=== PATIENT | male | born 1985 | race American Indian/Alaskan Native ===

== ENCOUNTER 2019-02-18 10:42 | Emergency (ER) | payer OTHER ==
[2019-02-18 10:54] VITALS: BP 129/89
--- NOTE | 2019-02-18 11:13 | Emergency Department Report ---
Abscess Boil HPI - HPI Chief Complaint: Abdominal Pain Stated Complaint: STOMACH BLEEDING INSIDE/PAIN Time Seen by Provider: 02/18/19 11:11 Duration: 1 Week Location: Other Severity: Mild History: Yes Pain, Yes Previous History, No Fever, No Purulent Drainage, No Numbness, No Foreign Body, No Insect Bite HPI: Patient is a pleasant 33-year-old -[place] male who comes to the ER today with his bleeding hemorrhoids. It is bright red blood on his stool. He denies straining. He states he lifts a lot of heavy stuff at work. denies anal sex. He has a prior history of hemorrhoids. He did not take any medicines at home to resolve his symptoms. Patient is not tachycardic nor hypotensive. Past medical history hemorrhoids. Past surgical history none. Home medications none. Primary care none Home Medications: Previous Rx's Medication Instructions Recorded Last Taken Type PE/Shk Lvr/Mo/Pet,Wh [Preparation 28 gm [place] BID #1 tube 02/18/19 Unknown Rx H] Phenylephrine HCl/[place] Butter 1 each RC DAILY #5 supp.rect 02/18/19 Unknown Rx [Preparation H Suppository] Allergies/Adverse Reactions: Allergies Allergy/AdvReac Type Severity Reaction Status Date / Time No Known Allergies Allergy Unverified 02/18/19 10:45 ED Review of Systems ROS: Stated complaint: STOMACH BLEEDING INSIDE/PAIN Other details as noted in HPI Comment: All other systems reviewed and negative Constitutional: denies: see HPI Eyes: denies: eye pain ENT: denies: as per HPI, throat pain Respiratory: denies: cough Cardiovascular: denies: palpitations Endocrine: denies: intolerance to cold Gastrointestinal: as per HPI, other (hemorrhoids bleeding). denies: abdominal pain, nausea Genitourinary: denies: dysuria Musculoskeletal: denies: back pain Skin: denies: lesions Neurological: denies: headache Psychiatric: denies: anxiety Hematological/Lymphatic: denies: easy bleeding ED Past Medical Hx - Past Medical History Previous Medical History?: Yes Additional medical history: hemorrhoids - Surgical History Past Surgical History?: No - Family History Family history: no significant - Social History Smoking Status: Current Every Day Smoker Substance Use Type: None - Medications Home Medications: Home Medications Medication Instructions Recorded Confirmed Last Taken Type PE/Shk Lvr/Mo/Pet,Wh [Preparation 28 gm [place] BID #1 tube 02/18/19 Unknown Rx H] Phenylephrine HCl/[place] Butter 1 each RC DAILY #5 supp.rect 02/18/19 Unknown Rx [Preparation H Suppository] ED Abscess Boil Physical Exam - Exam General: Vital signs noted. No distress. Alert and acting appropriately. Exam: Yes Tenderness, Yes Normal Neurologic Exam, Yes Normal Circulation, No Heart Murmur ED Course Vital Signs 02/18/19 10:51 Temperature 98.2 F Pulse Rate 86 Respiratory 16 Rate Blood Pressure 129/89 [Left] O2 Sat by Pulse 100 Oximetry Critical care attestation.: If time is entered above; I have spent that time in minutes in the direct care of this critically ill patient, excluding procedure time. ED Medical Decision Making - Medical Decision Making prep h ME sup and cream pt educated on hemorrhoids and care of them VSS no tachycardia no hypotension no melena no abd pain ambulatory non toxic Vital Signs 02/18/19 10:51 Temperature 98.2 F Pulse Rate 86 Respiratory 16 Rate Blood Pressure 129/89 [Left] O2 Sat by Pulse 100 Oximetry ED Disposition Clinical Impression: External hemorrhoid Disposition: DC-01 TO HOME OR SELFCARE Is pt being admited?: No Does the pt Need Aspirin: No Condition: Stable Instructions: Hemorrhoids (ED) Additional Instructions: med as ordered today warm baths will help pain follow up with pcp referral below do not strain to have a stool eat high fiber diet good body mechanics when lifting Prescriptions: PE/Shk Lvr/Mo/Pet,Wh [Preparation H] 28 gm [place] BID #1 tube Phenylephrine HCl/[place] Butter [Preparation H Suppository] 1 each RC DAILY #5 supp.rect Referrals: IGNACIA RICE MD [Primary Care Provider] - 3-5 Days Time of Disposition: 11:45
[2019-02-18] MEDS ORDERED: HEMORRHOIDAL 0.25/3/85.5% PR ONE (12:00)
[2019-02-18] MEDS ORDERED: PREPARATION H PR ONE (12:12)
== END 2019-02-18 12:08 | disposition home or self-care (01) ==
LOC: ED 10:42
DX: K64.4 Residual hemorrhoidal skin tags (principal); F17.200 Nicotine dependence, unspecified, uncomplicated
CPT/HCPCS: 99282

== ENCOUNTER 2019-07-09 09:59 | Emergency (ER) | payer OTHER ==
[2019-07-09 10:12] VITALS: BP 118/80
[2019-07-09 10:34] LABS: Basophils # (Auto) 0.1 K/mm3 (0.0-0.1); Eosinophils # (Auto) 0.2 K/mm3 (0.0-0.4); Eosinophils % (Auto) 3.2 % (0.0-4.3); Hematocrit 44.3 % (35.5-45.6); Hemoglobin 14.6 gm/dl (11.8-15.2); Lymphocytes # (Auto) 1.7 K/mm3 (1.2-5.4); Lymphocytes % (Auto) 24.5 % (13.4-35.0); Mean Corpuscular HGB Conc 33 % (32-34); Mean Corpuscular Volume 85 fl (84-94); Monocytes # (Auto) 0.6 K/mm3 (0.0-0.8); Monocytes % (Auto) 9.3 % (0.0-7.3); Platelet Count 179 K/mm3 (140-440); Red Blood Count 5.19 M/mm3 (3.65-5.03); Red Cell Distribution Width 14.1 % (13.2-15.2)
[2019-07-09 10:55] LABS: Alanine Aminotransferase 20 units/L (7-56); Albumin 4.5 g/dL (3.9-5); BUN/Creatinine Ratio 18; Blood Urea Nitrogen 14 mg/dL (9-20); Calcium 9.3 mg/dL (8.4-10.2); Hemolysis Index 29
[2019-07-09] MEDS ORDERED: ZOFRAN IV STA (11:32)
[2019-07-09] MEDS ORDERED: NACL 0.9% 1000 ML 1,000 ML IV ONE (11:32)
[2019-07-09] MEDS ORDERED: MORPHINE IV STA (11:32)
--- NOTE | 2019-07-09 11:39 | Emergency Department Report ---
ED Abdominal Pain HPI - General Chief Complaint: Back Pain/Injury Stated Complaint: POSS KIDNEY STONES/LOWER BACK PAIN Time Seen by Provider: 07/09/19 11:31 Source: patient Mode of arrival: Ambulatory Limitations: No Limitations - History of Present Illness Initial Comments: 34-year-old Lebanese male with past Present history of chief kidney stones or tumors department complaining of a kidney stone follow-up in his right flank. Reports having sharp stabbing pain with a sudden onset core associated with some dysuria. Also states he's passed a few kidney stones this morning but the pain continues to to linger. He is unsure of the stone type but last had a stone outbreak a couple years ago. Reports no no fever, but does have some nausea and fatigue. MD Complaint: abdominal pain, flank pain -: Sudden Location: R flank Radiation: R flank Migration to: no migration Quality: stabbing, sharp Consistency: intermittent Improves With: nothing Worsens With: nothing Associated Symptoms: nausea. denies: vomiting, diarrhea, constipation, hematemesis, hematochezia, hematuria, anorexia - Related Data Previous Rx's Medication Instructions Recorded Last Taken Type PE/Mo/Pet,Wh [Preparation H] 28 gm [place] BID #1 tube 02/18/19 Unknown Rx Phenylephrine HCl/[place] Butter 1 each RC DAILY #5 supp.rect 02/18/19 Unknown Rx [Preparation H Suppository] HYDROcodone/APAP 10-325 [[place] 1 each PO Q6HR PRN #10 tablet 07/09/19 Unknown Rx 10/325] Sulfamethoxazole/Trimethoprim 1 each PO BID #20 tablet 07/09/19 Unknown Rx [Bactrim Ds] Tamsulosin [Flomax] 0.4 mg PO QDAY #7 cap 07/09/19 Unknown Rx Allergies Allergy/AdvReac Type Severity Reaction Status Date / Time No Known Allergies Allergy Verified 07/09/19 10:01 ED Review of Systems ROS: Stated complaint: POSS KIDNEY STONES/LOWER BACK PAIN Other details as noted in HPI Comment: All other systems reviewed and negative ED Past Medical Hx - Past Medical History Additional medical history: hemorrhoids - Social History Smoking Status: Never Smoker Substance Use Type: Marijuana - Medications Home Medications: Home Medications Medication Instructions Recorded Confirmed Last Taken Type PE/Mo/Pet,Wh [Preparation H] 28 gm [place] BID #1 tube 02/18/19 Unknown Rx Phenylephrine HCl/[place] Butter 1 each RC DAILY #5 supp.rect 02/18/19 Unknown Rx [Preparation H Suppository] HYDROcodone/APAP 10-325 [[place] 1 each PO Q6HR PRN #10 tablet 07/09/19 Unknown Rx 10/325] Sulfamethoxazole/Trimethoprim 1 each PO BID #20 tablet 07/09/19 Unknown Rx [Bactrim Ds] Tamsulosin [Flomax] 0.4 mg PO QDAY #7 cap 07/09/19 Unknown Rx ED Physical Exam - General Limitations: No Limitations General appearance: alert, in no apparent distress - Head Head exam: Present: atraumatic, normocephalic - Eye Eye exam: Present: normal appearance - ENT ENT exam: Present: mucous membranes moist - Neck Neck exam: Present: normal inspection - Respiratory Respiratory exam: Present: normal lung sounds bilaterally. Absent: respiratory distress - Cardiovascular Cardiovascular Exam: Present: regular rate, normal rhythm. Absent: systolic murmur, diastolic murmur, rubs, gallop - GI/Abdominal GI/Abdominal exam: Present: soft, normal bowel sounds - Rectal Rectal exam: Present: deferred - Extremities Exam Extremities exam: Present: normal inspection - Back Exam Back exam: Present: normal inspection, CVA tenderness (R) - Neurological Exam Neurological exam: Present: alert, oriented X3 - Psychiatric Psychiatric exam: Present: normal affect, normal mood - Skin Skin exam: Present: warm, dry, intact, normal color. Absent: rash ED Course Vital Signs 07/09/19 07/09/19 10:10 11:57 Temperature 98.4 F Pulse Rate 63 Respiratory 16 18 Rate Blood Pressure 118/80 O2 Sat by Pulse 100 Oximetry ED Medical Decision Making - Lab Data Result diagrams: 07/09/19 10:19 07/09/19 10:19 - Medical Decision Making 34-year-old male with known history of recurrent kidney stones therapy today. CT scan shows stones on the right, most on the left than the collecting system. Advised him of the report and follow-up with urology for reevaluation and definitive management. Given his parents kidney stone situation. Critical care attestation.: If time is entered above; I have spent that time in minutes in the direct care of this critically ill patient, excluding procedure time. ED Disposition Clinical Impression: Kidney stones Disposition: DC-01 TO HOME OR SELFCARE Is pt being admited?: No Does the pt Need Aspirin: No Condition: Stable Instructions: Kidney Stones (ED), Ureteroscopy (GEN), How to Strain Your Urine (ED) Prescriptions: Sulfamethoxazole/Trimethoprim [Bactrim Ds] 1 each PO BID #20 tablet Tamsulosin [Flomax] 0.4 mg PO QDAY #7 cap HYDROcodone/APAP 10-325 [[place] 10/325] 1 each PO Q6HR PRN #10 tablet PRN Reason: Pain Referrals: [facility] [Provider Group] - 3-5 Days [facility] AMARIS WYATT MD [Primary Care Provider] - 3-5 Days Forms: Work/School Release Form(ED)
[2019-07-09 12:15] LABS: Bilirubin,Urine NEG (Negative); Blood,Urine MOD (Negative); Color,Urine Yellow (Yellow); Mucus,Urine 3+ /HPF
[2019-07-09 12:16] LABS: RBC,Urine > 182.0 /HPF (0.0-6.0)
[2019-07-09] MEDS ORDERED: TORADOL IV STA (12:55)
[2019-07-09] MEDS ORDERED: SUBLIMAZE IV STA (12:56)
--- NOTE | 2019-07-09 13:18 | Cat Scan Report ---
CT ABDOMEN AND PELVIS WITHOUT CONTRAST INDICATION / CLINICAL INFORMATION: flank pain right. kidney stone hx. TECHNIQUE: Axial CT images were obtained through the abdomen and pelvis without IV contrast. All CT scans at [facility] location are performed using CT dose reduction for ALARA by means of automated exposure control. COMPARISON: None available. FINDINGS: LOWER CHEST: No significant abnormality. LIVER: No significant abnormality. GALLBLADDER: No significant abnormality. BILE DUCTS: No significant abnormality. PANCREAS: No significant abnormality. SPLEEN: No significant abnormality. ADRENALS: No significant abnormality. RIGHT KIDNEY and URETER: Slight right hydronephrosis. Multiple nonobstructive stones throughout the r ight collecting system. LEFT KIDNEY and URETER: Extensive nonobstructive stones throughout the left collecting system. STOMACH and SMALL BOWEL: No significant abnormality. COLON: No significant abnormality. APPENDIX: No significant abnormality. PERITONEUM: No free fluid. No free air. No fluid collection. LYMPH NODES: No significant adenopathy. AORTA and ARTERIES: No significant abnormality. IVC and VEINS: No significant abnormality. URINARY BLADDER: No significant abnormality. REPRODUCTIVE ORGANS: No significant abnormality. ADDITIONAL FINDINGS: None. SKELETAL SYSTEM: No significant abnormality. IMPRESSION: Mildly obstructive 3 mm stone within the mid right ureter causing minimal to mild right hydronephrosi s. Extensive nonobstructive stones throughout the left collecting system. Signer Name: Amanuel Meza MD Signed: 07/09/2019 1:13 PM Workstation Name: [id number]
[2019-07-09] MEDS ORDERED: PERCOCET 5/325 PO STA (14:25)
== END 2019-07-09 14:33 | disposition home or self-care (01) ==
LOC: ED 09:59
DX: N20.0 Calculus of kidney (principal); F12.10 Cannabis abuse, uncomplicated; Z79.899 Other long term (current) drug therapy
CPT/HCPCS: 36415; 74176; 80053; 81001; 85025; 87086; 96374; 96375; 99284; J1885; J2270; J2405; J3010; J7030

== ENCOUNTER 2019-07-12 07:19 | Emergency (ER) | payer OTHER ==
[2019-07-12 07:29] VITALS: BP 134/92
[2019-07-12] MEDS ORDERED: NACL 0.9% 1000 ML 1,000 ML IV ONE (08:24)
[2019-07-12] MEDS ORDERED: MORPHINE IV ONE (08:24)
[2019-07-12] MEDS ORDERED: ZOFRAN IV ONE (08:24)
[2019-07-12] MEDS ORDERED: TORADOL IV ONE (08:24)
[2019-07-12 08:42] LABS: Basophils # (Auto) 0.1 K/mm3 (0.0-0.1); Basophils % (Auto) 1.1 % (0.0-1.8); Eosinophils # (Auto) 0.4 K/mm3 (0.0-0.4); Eosinophils % (Auto) 5.3 % (0.0-4.3); Hematocrit 44.5 % (35.5-45.6); Hemoglobin 14.8 gm/dl (11.8-15.2); Lymphocytes # (Auto) 1.5 K/mm3 (1.2-5.4); Lymphocytes % (Auto) 20.8 % (13.4-35.0); Mean Corpuscular HGB Conc 33 % (32-34); Mean Corpuscular Volume 86 fl (84-94); Monocytes # (Auto) 0.7 K/mm3 (0.0-0.8); Monocytes % (Auto) 10.2 % (0.0-7.3); Platelet Count 183 K/mm3 (140-440); Red Blood Count 5.19 M/mm3 (3.65-5.03); Red Cell Distribution Width 14.3 % (13.2-15.2)
[2019-07-12 08:57] LABS: BUN/Creatinine Ratio 15; Blood Urea Nitrogen 12 mg/dL (9-20); Calcium 9.3 mg/dL (8.4-10.2); Hemolysis Index 21
[2019-07-12 09:09] LABS: Bacteria,Urine 1+ /HPF (Negative); Bilirubin,Urine NEG (Negative); Blood,Urine LG (Negative); Calcium Oxalate Crystals,Urine 1+; Color,Urine Yellow (Yellow); Mucus,Urine 3+ /HPF; Urobilinogen,Urine < 2.0 mg/dL (<2.0)
[2019-07-12 09:10] LABS: RBC,Urine > 182.0 /HPF (0.0-6.0)
--- NOTE | 2019-07-12 09:13 | Cat Scan Report ---
CT ABDOMEN AND PELVIS WITHOUT CONTRAST INDICATION / CLINICAL INFORMATION: right flank pain. TECHNIQUE: Axial CT images were obtained through the abdomen and pelvis without IV contrast. All CT scans at [facility] location are performed using CT dose reduction for ALARA by means of automated exposure control. COMPARISON: Exam is compared to 07/09/2019 FINDINGS: LOWER CHEST: No significant abnormality. LIVER: No significant abnormality. GALLBLADDER: No significant abnormality. BILE DUCTS: No significant abnormality. PANCREAS: No significant abnormality. SPLEEN: No significant abnormality. ADRENALS: No significant abnormality. RIGHT KIDNEY and URETER: The previously noted calculus in the mid ureter has migrated distally and is in the distal ureter 2 cm proximal to the urinary bladder. Multiple renal calculi are present in the collecting system LEFT KIDNEY and URETER: Multiple left renal calculi STOMACH and SMALL BOWEL: No significant abnormality. COLON: No significant abnormality. APPENDIX: No significant abnormality. PERITONEUM: No free fluid. No free air. No fluid collection. LYMPH NODES: No significant adenopathy. AORTA and ARTERIES: No significant abnormality. IVC and VEINS: No significant abnormality. URINARY BLADDER: No significant abnormality. REPRODUCTIVE ORGANS: No significant abnormality. ADDITIONAL FINDINGS: None. SKELETAL SYSTEM: No significant abnormality. IMPRESSION: 1. 3 mm calculus distal right ureter with minimum hydronephrosis 2. Bilateral nephrolithiasis Signer Name: Zain Conti MD Signed: 07/12/2019 9:08 AM Workstation Name: [id number]
--- NOTE | 2019-07-12 09:48 | Emergency Department Report ---
ED General Adult HPI - General Chief complaint: Abdominal Pain Stated complaint: KIDNEY STONE Time Seen by Provider: 07/12/19 08:17 Source: patient Mode of arrival: Ambulatory Limitations: No Limitations - History of Present Illness Initial comments: Patient is a 34-year-old male who is presenting with right flank pain. Patient states pain started approximate 4 AM last night. Patient has a history of kidney stones. Patient states that the pain is in the right lower back wrapping around to the flank. He's noted some red tinge to his urine. Patient has some nausea but no vomiting. He also reports 1 episode of loose stools. Patient states pain is 9 out of 10 in severity and sharp. Patient denies fevers chills cough cold or congestion. Severity scale (0 -10): 9 - Related Data Previous Rx's Medication Instructions Recorded Last Taken Type PE/Mo/Pet,Wh [Preparation H] 28 gm [place] BID #1 tube 02/18/19 Unknown Rx Phenylephrine HCl/[place] Butter 1 each RC DAILY #5 supp.rect 02/18/19 Unknown Rx [Preparation H Suppository] HYDROcodone/APAP 10-325 [[place] 1 each PO Q6HR PRN #10 tablet 07/09/19 Unknown Rx 10/325] Sulfamethoxazole/Trimethoprim 1 each PO BID #20 tablet 07/09/19 Unknown Rx [Bactrim Ds] Tamsulosin [Flomax] 0.4 mg PO QDAY #7 cap 07/09/19 Unknown Rx Ciprofloxacin HCl [Ciprofloxacin 500 mg PO Q12HR #14 tab 07/12/19 Unknown Rx TAB] HYDROcodone/APAP 5-325 [[place] 1 each PO Q6HR PRN #14 tablet 07/12/19 Unknown Rx 5/325] Ibuprofen [Motrin 600 MG tab] 600 mg PO Q8H PRN #20 tablet 07/12/19 Unknown Rx Ondansetron [Zofran Odt] 4 mg PO Q8HR #10 tab.rapdis 07/12/19 Unknown Rx Tamsulosin [Flomax] 0.4 mg PO QDAY #7 cap 07/12/19 Unknown Rx Allergies Allergy/AdvReac Type Severity Reaction Status Date / Time No Known Allergies Allergy Verified 07/09/19 10:01 ED Review of Systems ROS: Stated complaint: KIDNEY STONE Other details as noted in HPI Comment: All other systems reviewed and negative ED Past Medical Hx - Past Medical History Previous Medical History?: Yes Additional medical history: hemorrhoids. kidney stones - Surgical History Past Surgical History?: No - Social History Smoking Status: Current Every Day Smoker Substance Use Type: Marijuana - Medications Home Medications: Home Medications Medication Instructions Recorded Confirmed Last Taken Type PE/Mo/Pet,Wh [Preparation H] 28 gm [place] BID #1 tube 02/18/19 Unknown Rx Phenylephrine HCl/[place] Butter 1 each RC DAILY #5 supp.rect 02/18/19 Unknown Rx [Preparation H Suppository] HYDROcodone/APAP 10-325 [[place] 1 each PO Q6HR PRN #10 tablet 07/09/19 Unknown Rx 10/325] Sulfamethoxazole/Trimethoprim 1 each PO BID #20 tablet 07/09/19 Unknown Rx [Bactrim Ds] Tamsulosin [Flomax] 0.4 mg PO QDAY #7 cap 07/09/19 Unknown Rx Ciprofloxacin HCl [Ciprofloxacin 500 mg PO Q12HR #14 tab 07/12/19 Unknown Rx TAB] HYDROcodone/APAP 5-325 [[place] 1 each PO Q6HR PRN #14 tablet 07/12/19 Unknown Rx 5/325] Ibuprofen [Motrin 600 MG tab] 600 mg PO Q8H PRN #20 tablet 07/12/19 Unknown Rx Ondansetron [Zofran Odt] 4 mg PO Q8HR #10 tab.rapdis 07/12/19 Unknown Rx Tamsulosin [Flomax] 0.4 mg PO QDAY #7 cap 07/12/19 Unknown Rx ED Physical Exam - General Limitations: No Limitations General appearance: alert, in distress - Head Head exam: Present: atraumatic, normocephalic - Eye Eye exam: Present: normal appearance - ENT ENT exam: Present: mucous membranes moist - Neck Neck exam: Present: normal inspection - Respiratory Respiratory exam: Present: normal lung sounds bilaterally. Absent: respiratory distress, wheezes, rales, rhonchi - Cardiovascular Cardiovascular Exam: Present: regular rate, normal rhythm, normal heart sounds. Absent: systolic murmur, diastolic murmur, rubs, gallop - GI/Abdominal GI/Abdominal exam: Present: soft, tenderness (right flank), normal bowel sounds. Absent: distended, guarding, rebound, rigid - Rectal Rectal exam: Present: deferred - Extremities Exam Extremities exam: Present: normal inspection - Back Exam Back exam: Present: normal inspection, CVA tenderness (R) - Neurological Exam Neurological exam: Present: alert, oriented X3 - Psychiatric Psychiatric exam: Present: normal affect, normal mood - Skin Skin exam: Present: warm, dry, intact, normal color. Absent: rash ED Course Vital Signs 07/12/19 07:27 Temperature 97.8 F Pulse Rate 60 Respiratory 16 Rate Blood Pressure 134/92 O2 Sat by Pulse 100 Oximetry ED Medical Decision Making - Lab Data Result diagrams: 07/12/19 08:35 07/12/19 08:35 Lab Results 07/12/19 07/12/19 07/12/19 Range/Units 07:52 08:35 08:35 WBC 7.0 (4.5-11.0) K/mm3 RBC 5.19 H (3.65-5.03) M/mm3 Hgb 14.8 (11.8-15.2) gm/dl Hct 44.5 (35.5-45.6) % MCV 86 (84-94) fl MCH 29 (28-32) pg MCHC 33 (32-34) % RDW 14.3 (13.2-15.2) % Plt Count 183 (140-440) K/mm3 Lymph % (Auto) 20.8 (13.4-35.0) % [place] % (Auto) 10.2 H (0.0-7.3) % Eos % (Auto) 5.3 H (0.0-4.3) % Baso % (Auto) 1.1 (0.0-1.8) % Lymph # 1.5 (1.2-5.4) K/mm3 [place] # 0.7 (0.0-0.8) K/mm3 Eos # 0.4 (0.0-0.4) K/mm3 Baso # 0.1 (0.0-0.1) K/mm3 Seg Neutrophils % 62.6 (40.0-70.0) % Seg Neutrophils # 4.4 (1.8-7.7) K/mm3 Sodium 143 (137-145) mmol/L Potassium 4.3 (3.6-5.0) mmol/L Chloride 107.9 H (98-107) mmol/L Carbon Dioxide 26 (22-30) mmol/L Anion Gap 13 mmol/L BUN 12 (9-20) mg/dL Creatinine 0.8 (0.8-1.5) mg/dL Estimated GFR > 60 ml/min BUN/Creatinine Ratio 15 % Glucose 94 (75-100) mg/dL Calcium 9.3 (8.4-10.2) mg/dL Urine Color Yellow (Yellow) Urine Turbidity Slightly-cloudy (Clear) Urine pH 6.0 (5.0-7.0) Ur Specific [place] 1.024 (1.003-1.030) Urine Protein 30 mg/dl (Negative) mg/dL Urine Glucose (UA) Neg (Negative) mg/dL Urine Ketones Neg (Negative) mg/dL Urine Blood Lg (Negative) Urine Nitrite Neg (Negative) Urine Bilirubin Neg (Negative) Urine Urobilinogen < 2.0 (<2.0) mg/dL Ur Leukocyte Esterase Mod (Negative) Urine WBC (Auto) 36.0 H (0.0-6.0) /HPF Urine RBC (Auto) > 182.0 (0.0-6.0) /HPF Urine Bacteria (Auto) 1+ (Negative) /HPF Calcium Oxalate Crystal 1+ Urine Mucus 3+ /HPF - EKG Data 07/12/19 09:46 [facility] [address] [place] [address] Cat Scan Report Signed Patient: JEISON JOLLY II MR# : [id number] : 1985 Acct:[id number] Age/Sex: 34 / M ADM Date: 07/12/19 Loc: ED Attending Dr: Ordering Physician: RAYSA TALBOT MD Date of Service: 07/12/19 Procedure(s): CT abdomen pelvis wo con Accession Number(s): [id number] cc: RAYSA TALBOT MD CT ABDOMEN AND PELVIS WITHOUT CONTRAST INDICATION / CLINICAL INFORMATION: right flank pain. TECHNIQUE: Axial CT images were obtained through the abdomen and pelvis without IV contrast. All CT scans at this location are performed using CT dose reduction for ALARA by means of automated exposure control. COMPARISON: Exam is compared to 07/09/2019 FINDINGS: LOWER CHEST: No significant abnormality. LIVER: No significant abnormality. GALLBLADDER: No significant abnormality. BILE DUCTS: No significant abnormality. PANCREAS: No significant abnormality. SPLEEN: No significant abnormality. ADRENALS: No significant abnormality. RIGHT KIDNEY and URETER: The previously noted calculus in the mid ureter has migrated distally and is in the distal ureter 2 cm proximal to the urinary bladder. Multiple renal calculi are present in the collecting system LEFT KIDNEY and URETER: Multiple left renal calculi STOMACH and SMALL BOWEL: No significant abnormality. COLON: No significant abnormality. APPENDIX: No significant abnormality. PERITONEUM: No free fluid. No free air. No fluid collection. LYMPH NODES: No significant adenopathy. AORTA and ARTERIES: No significant abnormality. IVC and VEINS: No significant abnormality. URINARY BLADDER: No significant abnormality. REPRODUCTIVE ORGANS: No significant abnormality. ADDITIONAL FINDINGS: None. SKELETAL SYSTEM: No significant abnormality. IMPRESSION: 1. 3 mm calculus distal right ureter with minimum hydronephrosis 2. Bilateral nephrolithiasis Signer Name: Zain Conti MD Signed: 07/12/2019 9:08 AM Workstation Name: [id number] Transcribed By: WG Dictated By: Zain Conti MD Electronically Authenticated By: Zain Conti MD Signed Date/Time: 07/12/19 - Medical Decision Making Patient is a 34-year-old black male who presented with right flank pain. A urinalysis shows the patient does have a large amount of blood in his urine as well as evidence of a mild infection. CT does confirm that the patient has a mildly obstructing stone. Stone is small enough that she'll be able to pass without assistance. Patient's pain is improved and the patient be discharged home with medications for symptomatic relief. Critical care attestation.: If time is entered above; I have spent that time in minutes in the direct care of this critically ill patient, excluding procedure time. ED Disposition Clinical Impression: Hydronephrosis Qualifiers: Hydronephrosis type: with ureteral calculous obstruction Qualified Code(s): N13.2 - Hydronephrosis with renal and ureteral calculous obstruction Acute cystitis Qualifiers: Hematuria presence: with hematuria Qualified Code(s): N30.01 - Acute cystitis with hematuria Disposition: TO HOME OR SELFCARE Is pt being admited?: No Does the pt Need Aspirin: No Condition: Stable Instructions: Kidney Stones (ED), How to Strain Your Urine (ED), Urinary Tract Infection in Men (ED) Referrals: AMARIS DAVILA MD [Primary Care Provider] - 3-5 Days FRANCHESKA HARRIS MD [Staff Physician] - 3-5 Days Time of Disposition: 09:48
== END 2019-07-12 10:16 | disposition home or self-care (01) ==
LOC: ED 07:19
DX: N13.30 Unspecified hydronephrosis (principal); N30.00 Acute cystitis without hematuria; F17.200 Nicotine dependence, unspecified, uncomplicated; F12.10 Cannabis abuse, uncomplicated; Z87.442 Personal history of urinary calculi; Z79.4 Long term (current) use of insulin; Z79.899 Other long term (current) drug therapy
CPT/HCPCS: 36415; 74176; 80048; 81001; 85025; 87086; 96374; 96375; 99284; J1885; J2270; J2405; J7030